=== PATIENT | male | born 1960 | race Caucasian/White ===

== ENCOUNTER 2016-07-30 08:52 | Day surgery (SDC) | payer MEDICARE, OTHER ==
[2016-07-25 13:34] VITALS: BMI 22.3
[~2016-07-30 08:52] MED LIST: LACTATED RINGERS 1,000 ML IV SCH
[2016-07-30 09:28] VITALS: TEMP 98
[2016-07-30] MEDS ORDERED: LIDOCAINE 1% 20 ML VIAL (10MG/ML) FOR IV START INTRADERMA ONE (09:32)
[2016-07-30] MEDS ORDERED: PROPOFOL 10 MG/ML 20 ML VIAL IV ONE (10:42)
--- NOTE | 2016-07-30 11:17 | P.PCN ---
Date of Procedure: 07/30/16 Preoperative Diagnosis: Postoperative Diagnosis: Procedure(s) Performed: Procedure: Esophagogastroduodenoscopy and biopsy. Preoperative diagnosis: History of Kenney's esophagus. Postoperative diagnosis: 1. Hiatal hernia and short segment of Kenney's esophagus. 2. Antral gastritis. 3. Biopsies obtained from the antrum and Kenney's esophagus. Preparation and sedation: Was provided by anesthesia. Brief clinical history: The patient is a 55-year-old male who is scheduled for this evaluation because of history of Kenney's esophagus. The patient was evaluated in the office last month for this issue as well as diarrhea predominant irritable bowel syndrome. The patient has chronic gastroesophageal reflux disease. His last upper endoscopy was around 6 months ago and he was recommended a repeat exam in 6 months, but he preferred to have it done through our practice. At this time, he has no dysphagia. He continues to have issues with weight loss. Procedure: With the patient on his left lateral decubitus position and after informed consent and adequate sedation, I passed the Olympus-GIF 160 video upper endoscope through the cricopharyngeus down the esophagus. GE junction was around 41 cm from the incisors and there was a short segment of Kenney's esophagus followed by a sliding hiatal hernia around 2 cm in size. The endoscope was then passed into the stomach which was insufflated with air and inspected in detail including the retroflex view in the cardia. There was some mottling and erythema in the antrum with few erosions but no ulcers or bleeding. Pyloric channel, duodenal bulb, post bulbar area and descending duodenum appeared within normal limits. I obtained biopsies from the antrum and multiple biopsies from the Kenney's esophagus then the endoscope was withdrawn. The patient tolerated the procedure well. Plan: The patient was reassured. Will await biopsy results. He will follow up in the office and we will keep you updated on his progress. He will follow up with you as planned. Implants: Indications for Procedure: Operative Findings: Description of Procedure:
[2016-07-30 11:27] VITALS: BP 129/69; PULSE 56; RESP 18
== END 2016-07-30 11:39 | disposition home or self-care (01) ==
LOC: ORWHC2ENDO 08:52
DX: K22.70 Barrett's esophagus without dysplasia (principal); K29.50 Unspecified chronic gastritis without bleeding; K44.9 Diaphragmatic hernia without obstruction or gangrene; K58.0 Irritable bowel syndrome with diarrhea; I10 Essential (primary) hypertension; E78.5 Hyperlipidemia, unspecified; M06.9 Rheumatoid arthritis, unspecified; M79.7 Fibromyalgia; K21.9 Gastro-esophageal reflux disease without esophagitis; J44.9 Chronic obstructive pulmonary disease, unspecified; Z86.718 Personal history of other venous thrombosis and embolism; Z79.891 Long term (current) use of opiate analgesic; Z79.899 Other long term (current) drug therapy; Z88.0 Allergy status to penicillin
CPT/HCPCS: 88305; 88342; 43239; J2704; 43202

== ENCOUNTER → 2017-01-14 | Outpatient (CLI) | payer MEDICARE, OTHER ==
--- NOTE | 2017-01-14 14:36 | XR ---
Lumbar spine HISTORY: Low back pain 3 views of the lumbar spine, comparison CT scan 11/20/2015 Lumbar vertebral bodies show preserved height and alignment. Suspect there are only 4 nonrib-bearing lumbar segments. Bone mineralization may be slightly reduced. There is multilevel spondylosis. Loss o f disc height is present at L4 S1, there is associated vacuum phenomenon. Sclerosis present in the po sterior elements. There are vascular calcifications present. There is a scoliosis. Surgical clips pre sent right upper quadrant. IMPRESSION: Degenerative disc disease and facet arthropathy. Correlate to plain film prior to any int ervention
== END ==
LOC: RADXRMAIN 13:55
PROVIDERS: ATTEND Family Medicine
DX: M51.36 Other intervertebral disc degeneration, lumbar region (principal); M46.86 Other specified inflammatory spondylopathies, lumbar region
CPT/HCPCS: 72100

== ENCOUNTER → 2017-03-19 | Outpatient (CLI) | payer MEDICARE, OTHER ==
[2017-03-19 19:49] LABS: Blood Urea Nitrogen 16 mg/dL (9-20)
--- NOTE | 2017-03-19 23:38 | MR ---
EXAMINATION TYPE: MR lumbar spine wo/w con DATE OF EXAM: 03/19/2017 COMPARISON: 06/20/2013 HISTORY: Palpable lumps, on each side of the spine TECHNIQUE: Multiplanar, multisequence images of the lumbar spine were acquired utilizing [address] gadolinium contrast. Lumbar vertebra have normal alignment. There is hypertrophic facet arthropathy and ligamentum flavum thickening at L4-5. There is resultant moderate bony spinal stenosis. There is some mild neural severiano inal narrowing at L4-5 due to facet arthropathy. There is no compression fracture. There is narrowing at L5-S1 disc space. There is no paraspinal mass. Posterior elements are intact. There is a cyst on the left kidney. The sacroiliac joints appear intact. I see no pathologic enhancement. IMPRESSION: There is some spondylosis at L5-S1. There is facet arthropathy and ligamentum flavum thickening at L4 -5 with some spinal stenosis that has progressed slightly compared to last exam. No fracture.
== END | disposition home or self-care (01) ==
LOC: RADMRIMAIN 18:51
PROVIDERS: ATTEND Physician Assistant
DX: M48.061 Spinal stenosis, lumbar region without neurogenic claudication (principal); M47.817 Spondylosis without myelopathy or radiculopathy, lumbosacral region; M46.96 Unspecified inflammatory spondylopathy, lumbar region; M24.28 Disorder of ligament, vertebrae; R22.9 Localized swelling, mass and lump, unspecified
CPT/HCPCS: 82565; 84520; 72158; 36415; A9581

== ENCOUNTER → 2017-08-04 | Outpatient (CLI) | payer MEDICARE, OTHER ==
--- NOTE | 2017-08-04 08:47 | XR ---
EXAMINATION TYPE: XR chest 2V DATE OF EXAM: 08/04/2017 COMPARISON: 09/27/2014 HISTORY: Shortness of breath TECHNIQUE: Frontal and lateral views of the chest are obtained. FINDINGS: Scattered senescent parenchymal changes noted. Hyperinflation compatible with COPD. No evidence for infiltrate. No evidence for atelectasis. Heart size is stable. Mediastinal structures are stable and grossly unremarkable. No evidence for hilar prominence. Degenerative changes dorsal spine. IMPRESSION: 1. No evidence for acute pulmonary disease.
== END | disposition home or self-care (01) ==
LOC: RADXRMAIN 08:32
PROVIDERS: ATTEND Family Medicine
DX: R63.4 Abnormal weight loss (principal)
CPT/HCPCS: 71046

== ENCOUNTER → 2017-08-22 | Outpatient (CLI) | payer MEDICARE, OTHER ==
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
== END | disposition home or self-care (01) ==
LOC: RADMRIMAIN 07:33
PROVIDERS: ATTEND Physical Medicine & Rehabilitation
DX: M47.812 Spondylosis without myelopathy or radiculopathy, cervical region (principal)
CPT/HCPCS: 72141

== ENCOUNTER → 2017-09-02 | Outpatient (CLI) | payer MEDICARE, OTHER ==
[2017-09-02 17:25] LABS: Iron Saturation 30.61 (15.00-50.00)
== END | disposition home or self-care (01) ==
LOC: LABWHC1 10:00
PROVIDERS: ATTEND Surgery Plastic and Reconstructive Surgery
DX: D64.9 Anemia, unspecified (principal)
CPT/HCPCS: 36415; 82728; 83540; 83550

== ENCOUNTER 2017-09-15 11:44 | Day surgery (SDC) | payer MEDICARE, OTHER ==
[2017-09-10 13:46] VITALS: BMI 19.2
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
[~2017-09-15 11:44] MED LIST changes: +LIDOCAINE 1% 20 ML VIAL (10MG/ML) FOR IV START INTRADERMA PRN
[2017-09-15 12:13] VITALS: TEMP 97.9
[2017-09-15] MEDS ORDERED: LIDOCAINE 1% INJ 10MG/ML (20 ML MDV) ONE (13:11)
[2017-09-15] MEDS ORDERED: PROPOFOL 10 MG/ML 20 ML VIAL IV ONE (13:11)
--- NOTE | 2017-09-15 13:26 | P.PCN ---
Date of Procedure: 09/15/17 Description of Procedure: PREOPERATIVE DIAGNOSIS: Gastroesophageal reflux disease. POSTOPERATIVE DIAGNOSIS: Gastritis, diffuse and superficial with recent bleeding Gastroesophageal reflux disease. Gastric ulcer, antrum, superficial without bleeding Diaphragmatic hiatal hernia without obstruction. OPERATION: Esophagogastroduodenoscopy with biopsies along antrum. SURGEON: Reina Lozano MD ANESTHESIA: MAC. INDICATIONS: The patient is a 56-year-old male who presents with a history of reflux disease. Benefits and risks of the procedure were described. Informed consent was obtained. DESCRIPTION: The patient was brought into the endoscopy suite and laid in the left lateral decubitus position. An Olympus gastroscope was passed along the posterior oropharynx down to the distal esophagus where the squamocolumnar junction was encountered at 36 cm from the incisors. The stomach was entered and no bile reflux was found. Additional findings are listed below. Biopsies with cold forceps were obtained of the antrum. The first through third portion of the duodenum was examined and unremarkable. Retroflexion of the scope confirmed Hill grade 4 lower esophageal valve. The squamocolumnar junction LA grade B erosive esophagitis. The stomach was desufflated. The patient tolerated the procedure well. FINDINGS: Squamocolumnar junction 37 cm from the incisors. Diaphragmatic hiatus at 41 cm. Hiatal hernia 4 cm. Hill grade 4 lower esophageal valve. LA grade B erosive esophagitis. No active duodenitis. Active gastric ulcer along the antrum, superficial Superficial gastritis with recent bleed RECOMMENDATIONS: Upper endoscopy as needed. Plan - Discharge Summary New Discharge Prescriptions: No Action Famotidine 20 mg PO BID Niacin [Niacin ER] 500 mg PO HS Pregabalin [Lyrica] 150 mg PO TID Dicyclomine [Bentyl] 20 mg PO Q6H Diphenoxylate HCl/Atropine [Diphenoxylate-Atrop 2.5-0.025] 2 tab PO Q6HR PRN PRN Reason: IBS Albuterol Sulfate [Ventolin HFA] 2 puff INHALATION Q6HR PRN PRN Reason: COPD Tiotropium 18 Mcg/Puff [Spiriva] 1 puff INHALATION DAILY Amitriptyline HCl 50 mg PO HS Acyclovir 400 mg PO DIRECTED PRN PRN Reason: HERPES oxyCODONE HCL/ACETAMINOPHEN [Oxycodone-Acetaminophen 10-325] 1 tab PO Q6HR Montelukast [Singulair] 10 mg PO HS Baclofen 10 mg PO TID Topiramate [Topamax] 50 mg PO BID DULoxetine HCL [Cymbalta] 60 mg PO DAILY amLODIPine BESYLATE [Norvasc] 5 mg PO DAILY Aspirin/Acetaminophen/Caffeine [Excedrin Migraine Caplet] 1 tab PO ONCE PRN PRN Reason: Migraine Headache Sucralfate [Carafate] 1 gm PO QID 14 Days tablet Teriparatide [Forteo] 20 mcg SQ DAILY Discharge Medication List Acyclovir 400 mg PO DIRECTED PRN 10/18/13 [History] Albuterol Sulfate [Ventolin HFA] 2 puff INHALATION Q6HR PRN 10/18/13 [History] Amitriptyline HCl 50 mg PO HS 10/18/13 [History] Baclofen 10 mg PO TID 10/18/13 [History] Dicyclomine [Bentyl] 20 mg PO Q6H 10/18/13 [History] Diphenoxylate HCl/Atropine [Diphenoxylate-Atrop 2.5-0.025] 2 tab PO Q6HR PRN [History] Famotidine 20 mg PO BID 10/18/13 [History] Montelukast [Singulair] 10 mg PO HS 10/18/13 [History] Niacin [Niacin ER] 500 mg PO HS 10/18/13 [History] Pregabalin [Lyrica] 150 mg PO TID 10/18/13 [History] Tiotropium 18 Mcg/Puff [Spiriva] 1 puff INHALATION DAILY 10/18/13 [History] oxyCODONE HCL/ACETAMINOPHEN [Oxycodone-Acetaminophen 10-325] 1 tab PO Q6HR 10/18 [History] Topiramate [Topamax] 50 mg PO BID 12/17/13 [History] DULoxetine HCL [Cymbalta] 60 mg PO DAILY 03/10/14 [History] amLODIPine BESYLATE [Norvasc] 5 mg PO DAILY 12/11/15 [History] Aspirin/Acetaminophen/Caffeine [Excedrin Migraine Caplet] 1 tab PO ONCE PRN [History] Sucralfate [Carafate] 1 gm PO QID 14 Days tablet 12/14/15 [Rx] Teriparatide [Forteo] 20 mcg SQ DAILY 09/10/17 [History]
[2017-09-15 13:44] VITALS: PULSE 60
[2017-09-15 13:53] VITALS: BP 126/74; RESP 16
== END 2017-09-15 14:03 | disposition home or self-care (01) ==
LOC: ORWHC2ENDO 11:44
PROVIDERS: ATTEND Surgery Plastic and Reconstructive Surgery
DX: K29.31 Chronic superficial gastritis with bleeding (principal); K25.9 Gastric ulcer, unspecified as acute or chronic, without hemorrhage or perforation; K21.0 Gastro-esophageal reflux disease with esophagitis; K44.9 Diaphragmatic hernia without obstruction or gangrene; J44.9 Chronic obstructive pulmonary disease, unspecified; M79.7 Fibromyalgia; Z86.718 Personal history of other venous thrombosis and embolism; E78.5 Hyperlipidemia, unspecified; I10 Essential (primary) hypertension; M06.9 Rheumatoid arthritis, unspecified; K58.9 Irritable bowel syndrome, unspecified; Z79.891 Long term (current) use of opiate analgesic; Z79.899 Other long term (current) drug therapy; Z88.0 Allergy status to penicillin
CPT/HCPCS: 88305; 43239; J2001; J2704

== ENCOUNTER → 2017-10-13 | Outpatient (CLI) | payer MEDICARE, OTHER | END | disposition home or self-care (01) | LOC: LABWHC1 13:52 | PROVIDERS: ATTEND Surgery Plastic and Reconstructive Surgery | DX: Z01.818 Encounter for other preprocedural examination (principal) | CPT/HCPCS: 36415; 93005 ==

== ENCOUNTER → 2018-03-05 | Day surgery (SDC) | payer MEDICARE, OTHER ==
[2018-02-26 15:18] VITALS: BMI 19.1
[~2018-03-05] MED LIST changes: +MIDAZOLAM (PF) 2 MG/2 ML VIAL IV PRN; +PROPOFOL 10 MG/ML 20 ML VIAL IV ONE
[2018-03-05 09:23] VITALS: RESP 16; TEMP 97.3
--- NOTE | 2018-03-05 10:17 | P.PCN ---
Date of Procedure: 03/05/18 Procedure(s) Performed: Procedure: Colonoscopy and biopsy. Preoperative diagnosis: Diarrhea and weight loss. Postoperative diagnosis: 1. Diverticulosis with no evidence of acute diverticulitis, strictures, polyps or cancer. 2. Biopsies obtained randomly from the colon and blindly from the terminal ileum. Preparation: HalfLytely prep. Sedation: Was provided by anesthesia. Brief clinical history: The patient is a 57-year-old male with history of long- standing irritable bowel syndrome with diarrhea requiring medical therapy for control, has been having worsening diarrhea and urgent bowel movements as well as abdominal cramping and weight loss. He had positive lactoferrin. There is history of poor appetite and lost 60 pounds over several months. This evaluation is to assess for various forms of colitis or other pathology. Procedure: With the patient on his left lateral decubitus position and after informed consent and adequate sedation, the perianal area was inspected and it did not show any fissures or fistulas. There were no masses felt on digital rectal examination. The Olympus CFQ 190L video colonoscope was then inserted in the rectum in the usual fashion and advanced to the cecum. I was not able to intubate the ileocecal valve but I was able to obtain a blind biopsy from the terminal ileum. The colon did not show any edema, erythema, friability, ulceration, exudation or spontaneous bleeding. No polyps or tumors were seen. Several diverticular orifices were seen scattered mostly on the left side with occasional small orifice on the right side and around the hepatic flexure. I obtained random biopsies from the colon then I retroflexed the endoscope in the rectum before the endoscope was withdrawn. The patient tolerated the procedure well. Plan: The patient was reassured. Will await biopsy results. Further plans based on his course and biopsy results. Will keep you updated on his progress.
[2018-03-05 10:36] VITALS: BP 112/62; PULSE 64
== END ==
LOC: ORWHC2ENDO 08:45
DX: K52.9 Noninfective gastroenteritis and colitis, unspecified (principal); J44.9 Chronic obstructive pulmonary disease, unspecified; Z86.718 Personal history of other venous thrombosis and embolism; M79.7 Fibromyalgia; I10 Essential (primary) hypertension; E78.5 Hyperlipidemia, unspecified; Z87.01 Personal history of pneumonia (recurrent); M06.9 Rheumatoid arthritis, unspecified; F32.9 Major depressive disorder, single episode, unspecified; G89.29 Other chronic pain; K21.9 Gastro-esophageal reflux disease without esophagitis; Z79.891 Long term (current) use of opiate analgesic; Z79.899 Other long term (current) drug therapy; Z88.0 Allergy status to penicillin
CPT/HCPCS: 88305; 88313; 45380; J2704

== ENCOUNTER → 2018-05-08 | Outpatient (CLI) | payer MEDICARE, OTHER ==
--- NOTE | 2018-05-08 12:38 | XR ---
Lumbar spine with flexion and extension HISTORY: Low back pain 7 views of the lumbar spine submitted and correlated prior exam 01/14/2017 There may be a mild spinal curvature as on prior exam. 4 nonrib-bearing lumbar vertebral bodies. Surg ical clips are present in the right upper quadrant. There is no evident spondylolysis. Minimal retrol isthesis grade 1 L2-3 is a stable finding, listhesis is stable in flexion and extension images. Loss of disc height greatest at L4-S1 with associated vacuum phenomenon as on prior exam. There is multile david spondylosis. Sclerosis in the posterior elements is compatible with facet arthropathy change. IMPRESSION: Degenerative disc disease and facet arthropathy. Additional findings above. Minimal listh esis L2-3 is stable. Correlate with plain film prior to any intervention. See discussion above.
== END | disposition home or self-care (01) ==
LOC: RADXRMAIN 10:36
PROVIDERS: ATTEND Physical Medicine & Rehabilitation
DX: M51.36 Other intervertebral disc degeneration, lumbar region (principal); M46.96 Unspecified inflammatory spondylopathy, lumbar region; M43.16 Spondylolisthesis, lumbar region; M47.816 Spondylosis without myelopathy or radiculopathy, lumbar region; Z98.890 Other specified postprocedural states
CPT/HCPCS: 72114

== ENCOUNTER → 2018-10-13 | Outpatient (CLI) | payer MEDICARE, OTHER ==
[~2018-10-13] MED LIST changes: +DENOSUMAB 60 MG/ML 1 ML SYRINGE SQ ONE; -LACTATED RINGERS 1,000 ML IV SCH; -LIDOCAINE 1% 20 ML VIAL (10MG/ML) FOR IV START INTRADERMA PRN; -MIDAZOLAM (PF) 2 MG/2 ML VIAL IV PRN; -PROPOFOL 10 MG/ML 20 ML VIAL IV ONE
[2018-10-13 14:01] VITALS: BP 101/59; PULSE 57; RESP 18; TEMP 98.1
== END | disposition home or self-care (01) ==
LOC: PROCWHC3 13:39
PROVIDERS: ATTEND Family Medicine
DX: M81.0 Age-related osteoporosis without current pathological fracture (principal)
CPT/HCPCS: 96372; J0897

== ENCOUNTER → 2018-10-15 | Outpatient (CLI) | payer MEDICARE, OTHER ==
--- NOTE | 2018-10-15 09:45 | MR ---
EXAMINATION TYPE: MR cervical spine wo con DATE OF EXAM: 10/15/2018 COMPARISON: 08/22/2017 HISTORY: Cervicalgia TECHNIQUE: Multiplanar, multisequence images of the cervical spine were acquired. C2-C3: Degenerative disc disease. No Canal stenosis. No foraminal encroachment. C3-C4: Degenerative disc disease with posterior spondylotic spur and disc bulging results in mild faraz tral stenosis. There is mild bilateral foraminal encroachment with facet arthropathy and uncovertebra l joint hypertrophy. Findings similar to the prior exam. C4-C5: Moderate to severe degenerative disc disease with posterior disc osteophyte complex and spondy lotic spur formation. Disc bulging capped by spur greater paracentrally and laterally to left. There is mild right foraminal encroachment and moderate left foraminal encroachment. Mild central stenosis. C5-C6: Severe degenerative disc disease with broad-based disc bulging posteriorly capped by spur. Unc overtebral joint hypertrophy is noted and there is thecal sac compression and mild impression upon th e spinal cord. Moderate canal stenosis. Severe right-sided foraminal encroachment and moderate to sev ere left-sided foraminal encroachment. Bilateral uncovertebral joint hypertrophy. C6-C7: No evidence for degenerative disc disease. No disc bulge/herniation or protrusion. No Canal stenosis. Foramina are patent bilaterally. C7-T1: No evidence for degenerative disc disease. No disc bulge/herniation or protrusion. No Canal stenosis. Foramina are patent bilaterally. Cervical segments are intact. There is loss of the normal cervical lordosis. Cervical spinal cord i s of normal signal. Craniovertebral junction relationships are within normal limits. Nonspecific di ffuse heterogeneous marrow signal is similar to the prior exam. IMPRESSION: 1. Findings are similar to the prior exam with multilevel moderate to severe degenerative disc diseas e. Multilevel disc bulging and hypertrophic changes result in multilevel canal stenosis and foraminal encroachment. Most marked findings are seen at C4-5 and C5-C6.
== END ==
LOC: RADMRIMAIN 08:39
PROVIDERS: ATTEND Anesthesiology
DX: M48.02 Spinal stenosis, cervical region (principal); M50.322 Other cervical disc degeneration at C5-C6 level; M50.222 Other cervical disc displacement at C5-C6 level
CPT/HCPCS: 72141

== ENCOUNTER → 2018-10-23 | Outpatient (CLI) | payer MEDICARE, OTHER ==
--- NOTE | 2018-10-23 12:55 | MR ---
EXAMINATION TYPE: MR brain wo/w con DATE OF EXAM: 10/23/2018 COMPARISON: None HISTORY: Headache TECHNIQUE: Multiplanar, multisequence images of the brain and brainstem is performed without and with IV contras t, utilizing 6.5 mL intravenous Gadavist . FINDINGS: Diffusion weighted images demonstrate no evidence of a recent infarct or other diffusion ab normality. There is no extra-axial fluid collection. Scattered hyperintensities are present on inver césar recovery T2-weighted sequences within the periventricular, sub and juxtacortical white matter, a pproximately 20-30 lesions are present, the largest only approximately 5 mm on axial image 27 in the left frontal white matter. The ventricular system and cisternal spaces are normal in size and appeara nce. The brain volume is age appropriate. Midline structures demonstrate normal morphology. The craniocervical junction appears within normal limits. Post contrast images demonstrate no abnormal enhancement. Venous drainage noted from the tor cula to the internal jugular vein on the right likely represents occipital sinus, normal variant. The dural venous sinuses appear patent. The visualized sinuses are clear and the globes are intact. Mild inflammatory change mastoids on the right. IMPRESSION: Nonspecific white matter demyelination, consider vasculitis, chronic small vessel ischemi c changes, hypertension, migraine headaches, Lyme disease, multiple sclerosis in the appropriate clin ical setting.
== END | disposition home or self-care (01) ==
LOC: RADMRIMAIN 09:11
PROVIDERS: ATTEND Family Medicine
DX: G37.9 Demyelinating disease of central nervous system, unspecified (principal)
CPT/HCPCS: 70553; A9585

== ENCOUNTER → 2018-11-30 | Day surgery (SDC) | payer MEDICARE, OTHER ==
[~2018-11-30] MED LIST changes: -DENOSUMAB 60 MG/ML 1 ML SYRINGE SQ ONE; +LACTATED RINGERS 1,000 ML IV SCH; +LIDOCAINE 1% 20 ML VIAL (10MG/ML) FOR IV START INTRADERMA PRN; +LIDOCAINE 1% INJ 10MG/ML (20 ML MDV) ONE; +MIDAZOLAM 2 MG/2 ML VIAL ONE; +PROPOFOL 10 MG/ML 20 ML VIAL IV ONE; +fentaNYL (PF) 50 MCG/ML 2 ML AMP ONE
[2018-11-30 08:22] VITALS: RESP 16; TEMP 97.2
--- NOTE | 2018-11-30 09:05 | P.PCN ---
Date of Procedure: 11/30/18 Description of Procedure: BRIEF HISTORY: Patient is a 58-year-old, pleasant, male with a medical history significant for irritable bowel syndrome, collagenous colitis gastroesophageal reflux disease and Kenney's esophagus who presents for outpatient EGD. The patient last underwent upper endoscopy in 2016 with findings consistent with Kenney's esophagus. Denies any new symptoms. PROCEDURE PERFORMED: Esophagogastroduodenoscopy with biopsy. PREOPERATIVE DIAGNOSIS: Kenney's esophagus, GERD. ESTIMATED BLOOD LOSS: Minimal. IV sedation per anesthesia. PROCEDURE: After informed consent was obtained, the patient was brought into the endoscopy unit. IV sedation was administered by Anesthesia under continuous monitoring. Initially the Olympus GIF-190 video endoscope was inserted into the mouth. Esophagus intubated without any difficulty. It was gradually advanced into the stomach and duodenum and carefully examined. The bulb and the second part of the duodenum appeared normal, with biopsies taken. The scope at this time was withdrawn to the stomach, adequately insufflated with air, and upon careful examination, mucosa of the antrum, body, cardia and the fundus appeared normal except for some mild scattered erythema in the antrum and body suggestive of mild gastritis with biopsies taken. The scope was then withdrawn into the esophagus. The GE junction was located at 44 cm from the incisors. The esophagus appeared normal, except for a 1 cm segment of Kenney's esophagus in the distal esophagus without any masses or irregular tissue noted with biopsies taken. There were no erosions or ulcerations seen and the patient tolerated the procedure well. IMPRESSION: 1. Short segment Kenney's esophagus, with biopsies of the distal esophagus. 2. Mild gastritis antrum and body, biopsied. 3. Duodenal biopsies. RECOMMENDATIONS: The findings of this examination were discussed with the patient and his friend. Okay to resume diet. Await pathology from biopsies. Continue PPI therapy. Anticipate repeat EGD in 2-3 years pending pathology from biopsies.
[2018-11-30 09:20] VITALS: BP 130/86; PULSE 67
== END ==
LOC: ORWHC2ENDO 07:56
PROVIDERS: ATTEND Internal Medicine
DX: K22.70 Barrett's esophagus without dysplasia (principal); K29.50 Unspecified chronic gastritis without bleeding; F17.200 Nicotine dependence, unspecified, uncomplicated; I10 Essential (primary) hypertension; E78.5 Hyperlipidemia, unspecified; Z86.718 Personal history of other venous thrombosis and embolism; J42 Unspecified chronic bronchitis; M06.9 Rheumatoid arthritis, unspecified; G43.909 Migraine, unspecified, not intractable, without status migrainosus; M79.7 Fibromyalgia; K21.9 Gastro-esophageal reflux disease without esophagitis; K58.9 Irritable bowel syndrome, unspecified; Z97.2 Presence of dental prosthetic device (complete) (partial); Z79.82 Long term (current) use of aspirin; Z79.891 Long term (current) use of opiate analgesic; Z79.899 Other long term (current) drug therapy; Z88.0 Allergy status to penicillin
CPT/HCPCS: 88305; 88313; 43239; J2250; J2001; J3010; J2704

== ENCOUNTER → 2019-03-19 | Outpatient (CLI) | payer MEDICARE, OTHER ==
--- NOTE | 2019-03-19 09:31 | US ---
EXAMINATION TYPE: US groin RT DATE OF EXAM: 03/19/2019 COMPARISON: NONE CLINICAL HISTORY: R59.0 Enlarged lymph nodes. Enlarged lymph node. TECHNIQUE/FINDINGS: Color and grayscale imaging was performed of the right groin to evaluate the niels ent's palpable abnormalities. Multiple lymph nodes seen largest measuring 3.1 x 0.6 cm. These lymph nodes contain regular fatty hil a and demonstrate no significant cortical thickening. No additional solid or cystic mass is seen. IMPRESSION: Multiple nonenlarged, morphologically normal superficial right inguinal lymph nodes. The re is clinical interval growth repeat exam could be performed for comparison of size.
== END | disposition home or self-care (01) ==
LOC: RADUSWWP 07:05
PROVIDERS: ATTEND Family Medicine
DX: R59.0 Localized enlarged lymph nodes (principal)

== ENCOUNTER → 2019-04-08 | Outpatient (CLI) | payer MEDICARE, OTHER ==
--- NOTE | 2019-04-08 09:52 | XR ---
EXAM TYPE: LUMBAR SPINE X RAY SERIES COMPARISON: NONE HISTORY: Low back pain TECHNIQUE: 4 views are submitted. FINDINGS: Alignment is anatomic. The pedicles are intact. The transverse processes are intact. There is no s pondylolysis or spondylolisthesis. Surgical clips in the gallbladder fossa. There is facet arthropat hy L4-5 and L5-S1 with severe degenerative disc disease L5-S1 IMPRESSION: 1. Multilevel facet arthropathy with severe degenerative disc disease L5-S1.
== END | disposition home or self-care (01) ==
LOC: RADXRMAIN 08:57
PROVIDERS: ATTEND Family Medicine
DX: M51.37 Other intervertebral disc degeneration, lumbosacral region (principal); M46.96 Unspecified inflammatory spondylopathy, lumbar region
CPT/HCPCS: 72100

== ENCOUNTER → 2019-05-04 | Outpatient (CLI) | payer MEDICARE, OTHER ==
[~2019-05-04] MED LIST changes: +DENOSUMAB 60 MG/ML 1 ML SYRINGE SQ ONE; -LACTATED RINGERS 1,000 ML IV SCH; -LIDOCAINE 1% 20 ML VIAL (10MG/ML) FOR IV START INTRADERMA PRN; -LIDOCAINE 1% INJ 10MG/ML (20 ML MDV) ONE; -MIDAZOLAM 2 MG/2 ML VIAL ONE; -PROPOFOL 10 MG/ML 20 ML VIAL IV ONE; -fentaNYL (PF) 50 MCG/ML 2 ML AMP ONE
[2019-05-04 10:30] VITALS: BP 137/79; PULSE 78; RESP 16; TEMP 97
== END | disposition home or self-care (01) ==
LOC: PROCWHC3 10:21
PROVIDERS: ATTEND Family Medicine
DX: M81.0 Age-related osteoporosis without current pathological fracture (principal)
CPT/HCPCS: 96372; J0897

== ENCOUNTER → 2019-05-04 | Outpatient (CLI) | payer MEDICARE, OTHER | END | disposition home or self-care (01) | LOC: LABWHC1 15:26 | PROVIDERS: ATTEND Surgery Plastic and Reconstructive Surgery | DX: Z01.810 Encounter for preprocedural cardiovascular examination (principal) | CPT/HCPCS: 36415; 93005 ==

== ENCOUNTER → 2019-07-16 | Outpatient (CLI) | payer MEDICARE, OTHER | END | disposition home or self-care (01) | LOC: LABWHC1 15:33 | PROVIDERS: ATTEND Surgery Plastic and Reconstructive Surgery | DX: U07.1 COVID-19 (principal) | CPT/HCPCS: 87635 ==

== ENCOUNTER 2019-07-19 07:48 | Day surgery (SDC) | payer MEDICARE, OTHER ==
[2019-07-16 10:36] VITALS: BMI 20.9
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
[~2019-07-19 07:48] MED LIST changes: +ACETAMINOPHEN TAB 500 MG TAB PO STA; -DENOSUMAB 60 MG/ML 1 ML SYRINGE SQ ONE; +DEXAMETHASONE SOD PHOSPHATE 10 MG/ML 1 ML VIAL IV ONE; +HEPARIN SODIUM,PORCINE 5,000 UNIT/ML 1 ML VIAL SQ ONE; +HYDROmorphone 0.5 MG/0.5 ML SYRINGE IVP PRN; +LACTATED RINGERS 1,000 ML IV SCH; +MIDAZOLAM 2 MG/2 ML VIAL IV PRN; +ONDANSETRON 4 MG/2 ML VIAL IVP ONE; +PREGABALIN 75 MG CAP PO ONE; +TAMSULOSIN 0.4 MG CAP.ER.24H PO ONE
[2019-07-19] MEDS ORDERED: fentaNYL (PF) 50 MCG/ML 2 ML AMP IV ONE (08:32)
[2019-07-19] MEDS ORDERED: PROPOFOL 10 MG/ML 20 ML VIAL IV ONE (08:54)
[2019-07-19] MEDS ORDERED: ROCURONIUM BROMIDE 10 MG/ML 5 ML VIAL IV ONE (08:54)
[2019-07-19] MEDS ORDERED: diphenhydrAMINE 50 MG/ML 1 ML VIAL ONE (08:54)
[2019-07-19] MEDS ORDERED: GLYCOPYRROLATE 0.2 MG/ML 2 ML VIAL ONE (08:54)
[2019-07-19] MEDS ORDERED: HYDROmorphone (PF) 1 MG/ML ONE (08:54)
[2019-07-19] MEDS ORDERED: NEOSTIGMINE 1 MG/ML 10 ML VIAL ONE (08:54)
[2019-07-19] MEDS ORDERED: ePHEDrine SULFATE/0.9% NACL/PF 50 MG/5 ML SYRINGE IV ONE (08:54)
[2019-07-19] MEDS ORDERED: fentaNYL (PF) 50 MCG/ML 2 ML AMP ONE (08:54)
[2019-07-19] MEDS ORDERED: SUCCINYLCHOLINE CHLORIDE 100 MG/5 ML SYR IV ONE (08:54)
[2019-07-19] MEDS ORDERED: KETAMINE 10 MG/ML 20 ML VIAL ONE (08:54)
[2019-07-19] MEDS ORDERED: LIDOCAINE 1% INJ 10MG/ML (20 ML MDV) ONE (08:54)
[2019-07-19 09:02] LABS: Basophils # (A) 0.2 k/uL (0-0.2); Basophils % (A) 1 %; Eosinophils # (A) 0.3 k/uL (0-0.7); Eosinophils % (A) 2 %; HCT 40.9 % (39.0-53.0); HGB 13.3 gm/dL (13.0-17.5); Lymphocytes # (A) 3.4 k/uL (1.0-4.8); Lymphocytes % (A) 25 %; MCHC 32.5 g/dL (31.0-37.0); MCV 92.3 fL (80.0-100.0); Mean Platelet Volume 7.3; Monocytes # (A) 0.8 k/uL (0-1.0); Monocytes % (A) 6 %; Neutrophils # (A) 8.9 k/uL (1.3-7.7); Neutrophils % (A) 65 %; Platelet Count 311 k/uL (150-450); RBC 4.44 m/uL (4.30-5.90); RDW 13.6 % (11.5-15.5); WBC 13.7 k/uL (3.8-10.6)
[2019-07-19 09:09] LABS: ALT 9 U/L (4-49); AST 19 U/L (17-59); African American GFR (CKD) >90 (>60 ml/min/1.73 sqM); Albumin 4.3 g/dL (3.5-5.0); Alkaline Phosphatase 65 U/L (38-126); Anion Gap 11 mmol/L; Blood Urea Nitrogen 15 mg/dL (9-20); Calcium 9.3 mg/dL (8.4-10.2); Carbon Dioxide 22 mmol/L (22-30); Chloride 105 mmol/L (98-107); Glucose 103 mg/dL (74-99); Non-African American GFR(CKD) 79 (>60 ml/min/1.73 sqM); Potassium 4.7 mmol/L (3.5-5.1); Sodium 138 mmol/L (137-145); Total Bilirubin 0.4 mg/dL (0.2-1.3); Total Protein 7.1 g/dL (6.3-8.2)
[2019-07-19] MEDS ORDERED: BUPIVACAIN-EPI 0.25%-1:200,000 30 ML VIAL SQ ONE (09:30)
--- NOTE | 2019-07-19 09:31 | P.ANPRN ---
Procedure Note - Anesthesia - Nerve Block Performed Bilateral Transversus Abdominis Single Time Out Performed: Yes ([id number]) Date of Procedure: 07/19/19 Procedure Start Time: 08:32 Location of Patient: PreOp Indication: Acute Post-Operative Pain, Requested by Surgeon Specifically requested for management of pain by DrIsela: Reina Lozano Sedation Type: Sedate with meaningful contact maintained Preparation: Sterile Prep Position: Supine Catheter: None Needle Types: Pajunk Needle Gauge: 21 Ultrasound used to visualize needle placement: Yes Ultrasound used to observe medication spread: Yes Injectate: 0.5% Ropivacaine (see comment for volume) (15cc each side) Blood Aspirated: No Pain Paresthesia on Injection Noted: No Resistance on Injection: Normal Image Stored and Saved: Yes Events: Uneventful and Well Tolerated
[2019-07-19] MEDS ORDERED: LACTATED RINGERS 1,000 ML IV ONE (10:30)
[2019-07-19 10:42] VITALS: TEMP 96.8
--- NOTE | 2019-07-19 11:17 | P.PCN ---
Date of Procedure: 07/19/19 Description of Procedure: SURGEON: REINA LOZANO MD PREOPERATIVE DIAGNOSES: 1. Initial right inguinal hernia. 2. Chronic pain syndrome 3. Hypertensive heart disease 4. Fibromyalgia 5. Past history of DVT 6. Gastroesophageal reflux disease 7. Rheumatoid arthritis 8. COPD 9. Migraines POSTOPERATIVE DIAGNOSES: 1. Initial right inguinal hernia. 2. Chronic pain syndrome 3. Hypertensive heart disease 4. Fibromyalgia 5. Past history of DVT 6. Gastroesophageal reflux disease 7. Rheumatoid arthritis 8. COPD 9. Migraines 10. Peritoneal adhesions right lower quadrant from previous appendectomy 11. Right inguinal lipoma, 4 cm OPERATION: 1. Robotic-assisted da [place] [facility] laparoscopic right inguinal hernia repair with mesh, 11.[address] 2. Robotic-assisted da [place] [facility] laparoscopic lysis of adhesions over 30 minutes 3. Excision of right inguinal lipoma 4 cm, subfascial ANESTHESIA: General with local anesthetic ESTIMATED BLOOD LOSS: 5 mL. SPECIMENS REMOVED: Right inguinal hernia lipoma COMPLICATIONS: None. FINDINGS: 1. [place] type I indirect inguinal hernia, reducible, initial, 2 cm 2. Non-absorbable 2-0 VLOC used INDICATIONS: The patient is a 58-year-old gentleman who presents with history of right groin pain. Now presents for definitive surgical in tervention. Laparoscopic versus open and robotic approaches were discussed. Benefits and risks including bleeding, infection, injury to the vas deferens as well as sterility and chronic groin pain were reviewed. Placement of mesh was also described. Informed consent was obtained. DESCRIPTION: In the preoperative area, the patient was marked with indelible marker along the inguinal hernia. The patient was brought to the operating room and initially laid in supine position. The abdomen had been prepped and draped in standard sterile fashion. Ioban draping was also placed. Prior to incision, a timeout protocol was confirmed with surgical team regarding patient's name including procedures to be performed and location along the right groin. Initial positioning for the robotic assisted ports were selected whereby 20 cm superior to the target anatomy, 0 degree 5 mm laparoscopic trocar entry was performed at the left upper quadrant. The abdomen was insufflated to 15 mmHg which he had tolerated well. Diagnostic laparoscopy demonstrated an indirect inguinal hernia along the right groin included moderate greater omental adhesions to the abdominal wall from previous appendectomy. Next, along the epigastrium, 8 mm robot trocar was placed. An 8-mm robotic trocar was placed under direct visualization at the right upper quadrant. An 8 mm port was placed at the left upper quadrant. All trocars were positioned between 8 to 10-cm apart from each other. The [employer] XI robot was primed, draped, prepared for docking along the right side of the patient. The patient was placed in Trendelenberg position 16-degrees. I then went to the [employer] Xi console. The administrative assistant was at bedside for exchange of the robot arms and equipment. Initial attention was brought to the right lower quadrant where adhesions were removed using scissors. No colotomy or injury to bowel occurred. Lysis of adhesions over 30 minutes occurred. No hernia was identified along the left groin. The right inguinal hernia sac was evaginated whereby the peritoneum was scored using Endo scissors with cautery. Once completely reduced into the abdominal cavity, the peritoneal sac of the hernia was stripped along an indirect inguinal hernia and a lipoma and sac was resected and then passed off for further pathological analysis. The size of the hernia defect was 2 cm with intraoperative films obtained. Using a 2-0 VLOC, the peritoneal defect of the right inguinal hernia site was closed using a pursestring suture. The defect was found to be completely closed with complete reduction of the right direct inguinal hernia was confirmed. As an onlay, an 11.[address] mesh by [employer] was initially cut in half and entered into the abdominal cavity via the 8 mm trocar. The mesh was resized and tacked to the pelvis using 2-0 VLOC 9-inch length sutures. The robot was undocked from the patient's bedside. I then rescrubbed into the case. Insufflation was released from the abdominal cavity and all instruments were removed from the abdominal cavity. The rest of incisions were reapproximated using 4-0 Monocryl in a running subcuticular fashion. Local anesthetic was placed along the incision including for a right groin block. Incisions were cleansed using dilute hydrogen peroxide. Liquid glue was applied to the skin. At the end of the procedure, the needle, sponge and instrument counts had been verified correct by the assistant professor surgical technology. The patient had tolerated the procedure well and was taken to the postanesthesia care unit in stable condition. Plan - Discharge Summary Discharge Rx Participant: Yes New Discharge Prescriptions: New Ibuprofen [Motrin] 600 mg PO Q8HR PRN #30 tab PRN Reason: Pain Continue Famotidine 20 mg PO BID Niacin [Niacin ER] 500 mg PO HS Pregabalin [Lyrica] 150 mg PO TID Dicyclomine [Bentyl] 20 mg PO Q6H Diphenoxylate HCl/Atropine [Diphenoxylate-Atrop 2.5-0.025] 2 tab PO Q6HR PRN PRN Reason: IBS Albuterol Sulfate [Ventolin HFA] 2 puff INHALATION Q6HR PRN PRN Reason: COPD Amitriptyline HCl 75 mg PO HS PRN PRN Reason: DIFFICULTY WITH SLEEPING Acyclovir 400 mg PO BID Montelukast [Singulair] 10 mg PO HS Baclofen 10 mg PO TID DULoxetine HCL [Cymbalta] 60 mg PO DAILY amLODIPine BESYLATE [Norvasc] 5 mg PO DAILY Aspirin/Acetaminophen/Caffeine [Excedrin Migraine Caplet] 1 tab PO ONCE PRN PRN Reason: Migraine Headache Sucralfate [Carafate] 1 gm PO QID 14 Days tablet Umeclidinium [place] [Incruse Ellipta] 1 puff INHALATION DAILY oxyCODONE-APAP 10-325MG [Percocet 10-325 mg] 1 tab PO QID PRN PRN Reason: Pain Ergocalciferol (Vitamin D2) [Vitamin D2] 50,000 unit PO MO Divalproex ER [Depakote ER] 250 mg PO BID Discharge Medication List Acyclovir 400 mg PO BID 10/18/13 [History] Albuterol Sulfate [Ventolin HFA] 2 puff INHALATION Q6HR PRN 10/18/13 [History] Amitriptyline HCl 75 mg PO HS PRN 10/18/13 [History] Baclofen 10 mg PO TID 10/18/13 [History] Dicyclomine [Bentyl] 20 mg PO Q6H 10/18/13 [History] Diphenoxylate HCl/Atropine [Diphenoxylate-Atrop 2.5-0.025] 2 tab PO Q6HR PRN 10/18/13 [History] Famotidine 20 mg PO BID 10/18/13 [History] Montelukast [Singulair] 10 mg PO HS 10/18/13 [History] Niacin [Niacin ER] 500 mg PO HS 10/18/13 [History] Pregabalin [Lyrica] 150 mg PO TID 10/18/13 [History] DULoxetine HCL [Cymbalta] 60 mg PO DAILY 03/10/14 [History] amLODIPine BESYLATE [Norvasc] 5 mg PO DAILY 12/11/15 [History] Aspirin/Acetaminophen/Caffeine [Excedrin Migraine Caplet] 1 tab PO ONCE PRN 12/14/15 [History] Sucralfate [Carafate] 1 gm PO QID 14 Days tablet 12/14/15 [Rx] Umeclidinium [place] [Incruse Ellipta] 1 puff INHALATION DAILY 02/26/18 [History] Ergocalciferol (Vitamin D2) [Vitamin D2] 50,000 unit PO MO 10/13/18 [History] oxyCODONE-APAP 10-325MG [Percocet 10-325 mg] 1 tab PO QID PRN 10/13/18 [History] Divalproex ER [Depakote ER] 250 mg PO BID 07/19/19 [History] Ibuprofen [Motrin] 600 mg PO Q8HR PRN #30 tab 07/19/19 [Rx] Follow up Appointment(s)/Referral(s): Reina Lozano MD [STAFF PHYSICIAN] - 08/03/19 Patient Instructions/Handouts: Laparoscopic Herniorrhaphy (DC), Inguinal Hernia Repair (DC) Activity/Diet/Wound Care/Special Instructions: No lifting over 10 pounds in 2 weeks until August 01. July shower. No bath tub soaks for two weeks until August 01. Diet as tolerated. No driving while on narcotics. Use Tylenol and ibuprofen or Aleve scheduled for the next 24-48 hours for best pain relief. Use ice along incisions for the today to prevent swelling. Discharge Disposition: HOME SELF-CARE
[2019-07-19 11:43] VITALS: RESP 16
[2019-07-19 12:03] VITALS: BP 127/55; PULSE 72
== END 2019-07-19 12:19 | disposition home or self-care (01) ==
LOC: OR 07:48
PROVIDERS: ATTEND Surgery Plastic and Reconstructive Surgery
DX: K40.90 Unilateral inguinal hernia, without obstruction or gangrene, not specified as recurrent (principal); D17.5 Benign lipomatous neoplasm of intra-abdominal organs; K66.0 Peritoneal adhesions (postprocedural) (postinfection); G89.4 Chronic pain syndrome; I11.9 Hypertensive heart disease without heart failure; M79.7 Fibromyalgia; K21.9 Gastro-esophageal reflux disease without esophagitis; M06.9 Rheumatoid arthritis, unspecified; J44.9 Chronic obstructive pulmonary disease, unspecified; G43.909 Migraine, unspecified, not intractable, without status migrainosus; R94.31 Abnormal electrocardiogram [ECG] [EKG]; E78.5 Hyperlipidemia, unspecified; K58.9 Irritable bowel syndrome, unspecified; K08.89 Other specified disorders of teeth and supporting structures; F17.210 Nicotine dependence, cigarettes, uncomplicated; Z86.718 Personal history of other venous thrombosis and embolism; Z88.0 Allergy status to penicillin; Z90.49 Acquired absence of other specified parts of digestive tract; Z87.01 Personal history of pneumonia (recurrent); Z87.09 Personal history of other diseases of the respiratory system; Z98.890 Other specified postprocedural states; Z90.89 Acquired absence of other organs; Z79.899 Other long term (current) drug therapy; Z79.51 Long term (current) use of inhaled steroids; Z79.891 Long term (current) use of opiate analgesic; Z97.2 Presence of dental prosthetic device (complete) (partial); Z80.8 Family history of malignant neoplasm of other organs or systems; Z83.3 Family history of diabetes mellitus; Z82.0 Family history of epilepsy and other diseases of the nervous system
CPT/HCPCS: 49650; 49329; 22900; 88304; 80053; 85025; C1781; J2250; J1200; J1644; J1100; J2710; J2405; J2001; J3010; J1170; J0330; J2704

== ENCOUNTER → 2019-09-14 | Outpatient (CLI) | payer MEDICARE, OTHER ==
--- NOTE | 2019-09-14 12:18 | MR ---
EXAMINATION TYPE: MR lumbar spine wo con DATE OF EXAM: 09/14/2019 COMPARISON: Plain film 04/08/2019, prior lumbar MRI 03/19/2017 HISTORY: Chronic Lower back Pain which radiates into both Legs TECHNIQUE: Multiplanar, multisequence images of the lumbar spine were acquired. L1-L2: Normal disc appearance without desiccation. No herniation, protrusion or disc bulging. No ca nal stenosis is present. Foramina are patent bilaterally. L2-L3: Normal disc appearance without desiccation. No herniation, protrusion or disc bulging. No ca nal stenosis is present. Foramina are patent bilaterally. L3-L4: Facet arthropathy causes some minimal posterior lateral mass effect on the thecal sac. Broad-b ased disc bulge causes mild anterior mass effect sac no significant spinal stenosis. Patient's spinal curvature contributes to cause some foraminal encroachment greater on the right. L4-L5: Broad-based posterior disc bulge causes anterior mass effect on the thecal sac. Facet arthropa thy with hypertrophy of ligamentum flavum results in a trefoil appearance of the thecal sac, moderate to severe spinal stenosis. Circumferential endplate disc complex extension encroaches on the foramin a. L5-S1: Loss of disc height signal is present with associated vacuum phenomenon. Posterior disc bulge contacts anterior thecal sac. There is facet arthropathy change. Circumferential extension of endplat e disc complex encroaches somewhat on the neural foramen greater on the left and likely contributed b y the patient's spinal curvature. No evident spinal stenosis. Lumbar segments are intact. No paraspinal masses are identified. Conus medullaris has a normal appe arance. T2 bright foci within the upper pole the left kidney, midpole the right kidney likely is a co rtical cysts, the left measures approximately 5.4 cm, the right 1.8 cm, cyst noted of the sacrum as o n prior. IMPRESSION: Findings similar to prior exam. There is spinal stenosis greatest at L4-5, degenerative disc disease and foraminal encroachment as described.
== END | disposition home or self-care (01) ==
LOC: RADMRIMAIN 09:05
PROVIDERS: ATTEND Physical Medicine & Rehabilitation
DX: M51.36 Other intervertebral disc degeneration, lumbar region (principal); M48.061 Spinal stenosis, lumbar region without neurogenic claudication
CPT/HCPCS: 72148

== ENCOUNTER → 2019-10-08 | Outpatient (CLI) | payer MEDICARE, OTHER ==
--- NOTE | 2019-10-08 20:04 | XR ---
EXAMINATION TYPE: XR shoulder complete LT DATE OF EXAM: 10/08/2019 CLINICAL HISTORY: Left shoulder pain. TECHNIQUE: Three views of the left shoulder are obtained. COMPARISON: None. FINDINGS: There is no acute fracture/dislocation evident in the left shoulder. The acromioclavicula r and glenohumeral joint spaces appear within normal limits. The visualized ribs are intact and unre markable. IMPRESSION: Unremarkable radiographic exam of the left shoulder.
--- NOTE | 2019-10-08 20:17 | XR ---
EXAMINATION TYPE: XR Hip Complete LT DATE OF EXAM: 10/08/2019 CLINICAL HISTORY: Left hip pain TECHNIQUE: AP and frogleg views of the left hip are obtained. COMPARISON: None. FINDINGS: There is no acute fracture or dislocation of the left hip. There is mild superior acetabul ar degenerative change. There is mild bony protrusion at the anterior superior aspect of the femoral head and neck junction. There is a small well ossified calcific density lateral to the superior aceta bulum which may represent ossicle. Normal osseous mineralization. IMPRESSION: 1. There is no acute fracture or dislocation of the left hip. 2. Mild bony protrusion at the anterior superior femoral head and neck junction may represent femoral acetabular impingement.
== END | disposition home or self-care (01) ==
LOC: RADXRMAIN 09:08
PROVIDERS: ATTEND Family Medicine
DX: M25.512 Pain in left shoulder (principal); M25.552 Pain in left hip; M24.7 Protrusio acetabuli
CPT/HCPCS: 73502

== ENCOUNTER → 2019-11-02 | Outpatient (CLI) | payer MEDICARE, OTHER ==
[~2019-11-02] MED LIST changes: -ACETAMINOPHEN TAB 500 MG TAB PO STA; +DENOSUMAB 60 MG/ML 1 ML SYRINGE SQ ONE; -DEXAMETHASONE SOD PHOSPHATE 10 MG/ML 1 ML VIAL IV ONE; -HEPARIN SODIUM,PORCINE 5,000 UNIT/ML 1 ML VIAL SQ ONE; -HYDROmorphone 0.5 MG/0.5 ML SYRINGE IVP PRN; -LACTATED RINGERS 1,000 ML IV SCH; -MIDAZOLAM 2 MG/2 ML VIAL IV PRN; -ONDANSETRON 4 MG/2 ML VIAL IVP ONE; -PREGABALIN 75 MG CAP PO ONE; -TAMSULOSIN 0.4 MG CAP.ER.24H PO ONE
[2019-11-02 11:46] VITALS: BP 121/76; PULSE 64; RESP 16; TEMP 98.5
== END | disposition home or self-care (01) ==
LOC: PROCWHC3 11:26
PROVIDERS: ATTEND Family Medicine
DX: M81.0 Age-related osteoporosis without current pathological fracture (principal)
CPT/HCPCS: 96372; J0897

== ENCOUNTER → 2020-02-21 | Outpatient (CLI) | payer MEDICARE, OTHER ==
--- NOTE | 2020-02-21 10:47 | XR ---
Lumbar spine with flexion and extension HISTORY: Radiculopathy 7 views of lumbosacral spine correlated to prior exam 04/08/2019 There is a mild levoscoliosis centered at L2. There is multilevel spondylosis. No evident spondylolys is. Loss of disc height is greatest at L5-S1 with associated vacuum phenomenon. Sclerosis present in the posterior elements of the lower lumbar spine is noted. Lumbar vertebral bodies show preserved hei ght and bone mineralization. No spondylolisthesis noted, normal alignment on flexion and extension vi ews. Patient is post cholecystectomy. IMPRESSION: Degenerative disc disease and facet arthropathy, spinal curvature.
== END | disposition home or self-care (01) ==
LOC: RADXRMAIN 10:03
PROVIDERS: ATTEND Physical Medicine & Rehabilitation
DX: M51.16 Intervertebral disc disorders with radiculopathy, lumbar region (principal); M47.26 Other spondylosis with radiculopathy, lumbar region; M43.8X6 Other specified deforming dorsopathies, lumbar region; M79.7 Fibromyalgia; M06.9 Rheumatoid arthritis, unspecified
CPT/HCPCS: 72114

== ENCOUNTER → 2020-05-03 | Outpatient (CLI) | payer MEDICARE, OTHER ==
[~2020-05-03] MED LIST changes: +DENOSUMAB 60 MG/ML 1 ML SYRINGE SQ NR; -DENOSUMAB 60 MG/ML 1 ML SYRINGE SQ ONE
[2020-05-03 10:47] VITALS: BP 150/83; PULSE 62; RESP 16; TEMP 97.7
== END ==
LOC: PROCWHC3 10:37
PROVIDERS: ATTEND Family Medicine
DX: M81.0 Age-related osteoporosis without current pathological fracture (principal)
CPT/HCPCS: 96372; J0897

== ENCOUNTER → 2020-06-28 | Outpatient (CLI) | payer MEDICARE, OTHER ==
--- NOTE | 2020-06-29 05:52 | MR ---
EXAMINATION TYPE: MR cervical spine wo con DATE OF EXAM: 06/28/2020 COMPARISON: 10/15/2018 HISTORY: Intense neck pain for 2 months, new onset radicular symptoms in left upper extremity. Multiplanar multiecho imaging of the cervical spine was performed without contrast. There is mild straightening of the vertebra. There is degenerative disc space narrowing from C3 to C6 . There is mild posterior disc bulging and herniation at C4-5. Cervical spinal cord shows normal sign al pattern. There is no edema. There is no significant spinal stenosis. There is some uncovertebral s purring on the left side at C5-6. The brainstem is intact. There is no compression fracture. Spinal c anal measures almost 8 mm at the narrowest point. This is at the C5-6 level. IMPRESSION: Multilevel spondylotic changes. No significant spinal stenosis. Mild posterior endplate spur formatio n and disc bulging at C4-5 and C5-6.
== END | disposition home or self-care (01) ==
LOC: RADMRIMAIN 16:33
PROVIDERS: ATTEND Physical Medicine & Rehabilitation
DX: M50.221 Other cervical disc displacement at C4-C5 level (principal); M47.812 Spondylosis without myelopathy or radiculopathy, cervical region
CPT/HCPCS: 72141

== ENCOUNTER → 2020-11-23 | Outpatient (CLI) | payer MEDICARE, OTHER ==
[2020-11-23 09:47] VITALS: BP 144/81; PULSE 81; RESP 16; TEMP 98.1
== END ==
LOC: PROCWHC3 09:31
PROVIDERS: ATTEND Family Medicine
DX: M81.0 Age-related osteoporosis without current pathological fracture (principal); F17.200 Nicotine dependence, unspecified, uncomplicated; Z88.0 Allergy status to penicillin
CPT/HCPCS: 96372

== ENCOUNTER → 2021-02-27 | Outpatient (CLI) | payer MEDICARE, OTHER ==
--- NOTE | 2021-02-27 11:29 | XR ---
EXAMINATION TYPE: XR hand complete RT DATE OF EXAM: 02/27/2021 COMPARISON: NONE HISTORY: Swelling TECHNIQUE: Three views are submitted. FINDINGS: The osseous structures are intact. There is narrowing of the radiocarpal joint. Cystic changes of the capitate noted. IMPRESSION: 1. No definite acute fracture or dislocation if symptoms persist, follow-up study in 7 to 10 days wo uld be suggested
== END | disposition home or self-care (01) ==
LOC: RADXRMAIN 11:01
PROVIDERS: ATTEND Nurse Practitioner Family
DX: G56.01 Carpal tunnel syndrome, right upper limb (principal)

== ENCOUNTER → 2021-02-27 | Outpatient (CLI) | payer MEDICARE, OTHER ==
--- NOTE | 2021-02-27 11:09 | US ---
EXAMINATION TYPE: US venous doppler duplex LE LT DATE OF EXAM: 02/27/2021 10:57 AM COMPARISON: NONE CLINICAL HISTORY: R22.42 swelling, mass and lump, left lower limb. swelling LLE, lump on right side a fter fall. SIDE PERFORMED: Left TECHNIQUE: The lower extremity deep venous system is examined utilizing real time linear array sonog rodriguez with graded compression, doppler sonography and color-flow sonography. VESSELS IMAGED: Common Femoral Vein Deep Femoral Vein Greater Saphenous Vein * Femoral Vein Popliteal Vein Small Saphenous Vein * Proximal Calf Veins (* superficial vessels) Left Leg: Negative for DVT IMPRESSION: No evidence for DVT.
== END | disposition home or self-care (01) ==
LOC: RADUSWWP 10:26
PROVIDERS: ATTEND Family Medicine
DX: R22.42 Localized swelling, mass and lump, left lower limb (principal)

== ENCOUNTER → 2021-05-17 | Outpatient (CLI) | payer MEDICARE, OTHER ==
--- NOTE | 2021-05-17 08:37 | CT ---
EXAMINATION TYPE: CT wrist RT wo con DATE OF EXAM: 05/17/2021 COMPARISON: Right hand x-ray February 27, 2021 HISTORY: sublux of the carpometacarpal joints. specifically 2nd, 3rd, and 4th CT DLP: 302 mGycm Automated exposure control for dose reduction was used. FINDINGS: A few small subchondral cysts in the triquetrum bone proximal carpal row. Additional subchondral cyst s noted in the capitate. Sagittal images show dorsal positioning or tilting of the lunate. There is t iny 3 mm ossific fragment along the Bohler aspect of the scapholunate joint space coronal image 23 se mylene 10 for reference. Scapholunate angle measures under 30 degrees. Scapholunate joint space measure s 3 mm which is within normal limits. No carpal bony destruction. Overlying soft tissue is unremarka ble. Metacarpal phalangeal joints are fairly well preserved. Imaging does not include the entire fing ers focusing on the right wrist. Base of first metacarpal maintained. IMPRESSION: Dorsal tilting of the lunate. No increased scapholunate angle to suggest ligament dissoci ation. No suspicious widening of the scapholunate space. Scattered subchondral cystic change in the c arpal bones as detailed above.
== END | disposition home or self-care (01) ==
LOC: RADCTMAIN 07:25
PROVIDERS: ATTEND Surgery Surgery of the Hand
DX: M85.642 Other cyst of bone, left hand (principal)

== ENCOUNTER → 2022-01-18 | Outpatient (CLI) | payer MEDICARE, OTHER ==
[~2022-01-18] MED LIST changes: -DENOSUMAB 60 MG/ML 1 ML SYRINGE SQ NR; +DENOSUMAB 60 MG/ML 1 ML SYRINGE SQ ONE
[2022-01-18 09:04] VITALS: BP 137/72; PULSE 57; RESP 15; TEMP 97.6
== END ==
LOC: PROCWHC3 08:56
PROVIDERS: ATTEND Family Medicine
DX: M81.0 Age-related osteoporosis without current pathological fracture (principal); Z88.0 Allergy status to penicillin; F17.200 Nicotine dependence, unspecified, uncomplicated
CPT/HCPCS: 96372; J0897

== ENCOUNTER → 2022-09-10 | Outpatient (CLI) | payer MEDICARE, OTHER ==
--- NOTE | 2022-09-10 12:53 | XR ---
EXAMINATION TYPE: XR shoulder complete BILAT DATE OF EXAM: 09/10/2022 COMPARISON: NONE HISTORY: Pain TECHNIQUE: Two views are submitted. FINDINGS: The osseous structures are intact. There is no acute fracture or dislocation. Severe AC joint arthro reyna. IMPRESSION: 1. Bilateral severe AC joint arthropathy.
== END | disposition home or self-care (01) ==
LOC: RADXRMAIN 11:53
PROVIDERS: ATTEND Physician Assistant
DX: M19.011 Primary osteoarthritis, right shoulder (principal); M19.012 Primary osteoarthritis, left shoulder

== ENCOUNTER → 2023-04-25 | Outpatient (CLI) | payer MEDICARE, OTHER ==
--- NOTE | 2023-04-25 14:05 | CT ---
EXAMINATION TYPE: CT pelvis wo con DATE OF EXAM: 04/25/2023 COMPARISON: CT abdomen and pelvis dated 11/20/2015. HISTORY: inguinal hernia CT DLP: 323 mGycm Automated exposure control for dose reduction was used. FINDINGS: There is mild aneurysmal dilatation of the distal abdominal aorta measuring 3 cm. There is a right inguinal hernia containing a contrast-filled bowel loop measuring 2.6 cm it is not d ilated. There is no wall thickening to suggest wall ischemia. Bowel loops within the visualized abdom en and pelvis are nondilated and there is no evidence of obstruction. There is no free intraperitonea l air or fluid. There is no pelvic adenopathy. The osseous structures are intact. IMPRESSION: 1. Right inguinal hernia containing opacified small bowel loop. 2. No evidence of bowel obstruction or strangulation. 3. 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 IMPRESSION:
== END | disposition home or self-care (01) ==
LOC: RADCTMAIN 11:09
PROVIDERS: ATTEND Surgery Plastic and Reconstructive Surgery
DX: K40.90 Unilateral inguinal hernia, without obstruction or gangrene, not specified as recurrent (principal); I71.40 Abdominal aortic aneurysm, without rupture, unspecified
CPT/HCPCS: 72192

== ENCOUNTER 2023-09-06 16:03 | Emergency (ER) | payer MEDICARE, OTHER ==
[2023-09-06 17:05] VITALS: BP 158/75; PULSE 67; RESP 18; TEMP 98
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
[2023-09-06] MEDS: OXYMETAZOLINE 0.05% NASL SPRAY 1 SPRAY BOTTLE NASAL STA (18:44)
== END 2023-09-06 17:50 | disposition home or self-care (01) ==
LOC: EC 16:03
DX: R04.0 Epistaxis (principal); F17.200 Nicotine dependence, unspecified, uncomplicated; Z88.0 Allergy status to penicillin
CPT/HCPCS: 99282

== ENCOUNTER → 2023-12-25 | Outpatient (CLI) | payer MEDICARE, OTHER ==
--- NOTE | 2023-12-25 17:26 | MR ---
EXAMINATION TYPE: MR cervical spine wo con DATE OF EXAM: 12/25/2023 5:18 PM CLINICAL INDICATION: Male, 63 years old with history of M50.20 OTHER CERVICAL DISC DISORDER; PHH, Tin gling right shoulder COMPARISON: 06/28/2020. TECHNIQUE: Multi planar, multi sequence imaging was performed utilizing: T1-weighted, T2-weighted, an d turbo inversion recovery imaging of the cervical spine. IV Contrast: cc (none if empty) FINDINGS: Alignment: The cervical vertebral bodies have preserved heights. Alignment is within normal limits gi doron patient positioning. Bones: Bone signal is within normal limits. No abnormal bone marrow edema on inversion recovery seque nces. Cord: The spinal cord is unremarkable with regards to their signal intensity and morphology. Discs: Intervertebral disc signal is maintained. C2-C3: No significant disc pathology. The spinal canal is patent. No neural foraminal stenosis. C3-C4: A disc osteophyte complex is present which minimally narrows the ventral subarachnoid space. Bilateral facet and uncovertebral joint arthropathy are present with mild left neural foraminal sten osis. The right neural foramen is patent. C4-C5: A disc osteophyte complex is present which minimally narrows the ventral subarachnoid space. Bilateral facet and uncovertebral joint arthropathy are present with moderate left and mild right ne ural foraminal stenosis. C5-C6: A disc osteophyte complex is present with mild spinal canal stenosis. Bilateral facet and unc overtebral joint arthropathy are present with moderate bilateral neural foraminal stenosis. C6-C7: No significant disc pathology. The spinal canal is patent. No neural foraminal stenosis. C7-T1: No significant disc pathology. The spinal canal is patent. No neural foraminal stenosis. Other: None. IMPRESSION: 1. Similar exam to prior. No evidence for disc herniation or significant spinal canal stenosis. 2. Multilevel disc degeneration with associated osteoarthritic changes. Neural foraminal stenosis wor se at C5-C6 with mild bilateral and moderate left C4-C5 [facility], , 12/25/2023 5:24 PM
== END | disposition home or self-care (01) ==
LOC: RADMRIMAIN 16:22
PROVIDERS: ATTEND Physical Medicine & Rehabilitation
DX: M50.30 Other cervical disc degeneration, unspecified cervical region (principal); M47.812 Spondylosis without myelopathy or radiculopathy, cervical region; M62.838 Other muscle spasm; M06.9 Rheumatoid arthritis, unspecified; M48.02 Spinal stenosis, cervical region
CPT/HCPCS: 72141